=== PATIENT | female | born 1995 | race Caucasian/White ===

== ENCOUNTER → 2016-09-11 | Outpatient (CLI) | payer BC ==
[~2016-09-11] MED LIST: ADVIL200 MG PO; AUGMENTIN600 MG/5 M PO; CIPRODEX 0.3%-7.5 ML OT; HYDROCODONE BI118 ML PO; HYOSCYAMINE0.125 M1 PO; KEFLEX 500MG.500 MG PO; MOTRIN 600MG.600 MG PO; NABUMETONE750 MG OR; NO HOME MEDS; OMEPRAZOLE20 MG PO; OMNICEF 300 MG300 MG PO; PHENERGAN 25MG.25 M1 PO; TAMIFLU 75MG CA75 MG PO; ZOLOFT25 MG PO; Zofran4 MG PO; [UNRECOGNIZED DRUG - OTHER] PO
--- NOTE | 2016-09-11 16:15 | RADIOLOGY REPORT PS360 ---
ELBOW-LT-3 VIEWS HISTORY: LEFT ELBOW PAIN ORDERING PHYSICIAN: Juan Carlos Lee MD PATIENT AGE: 20 years COMPARISON: None FINDINGS: No fracture or dislocation. The joint space is well-preserved. No evidence of displaced fat pad. A 4 mm sclerotic focus is present the distal humerus at the capitellum consistent with a bone island. IMPRESSION: 1. Small bone island of the capitellum, no acute finding
== END ==
LOC: RAD 15:53
DX: M25.522 Pain in left elbow (principal)